=== PATIENT | male | born 1985 | race Caucasian/White ===

== ENCOUNTER → 2021-11-28 | Outpatient (CLI) | payer OTHER | LOC: KOH-I 10:41 | DX: M79.672 Pain in left foot (principal) | CPT/HCPCS: 73630 ==

== ENCOUNTER → 2022-01-12 | Day surgery (SDC) | payer OTHER ==
[~2022-01-12] VITALS: Ht 182.9 cm; Wt 88.9 kg
== END | disposition home or self-care (01) ==
LOC: OR 06:42
DX: M84.475A Pathological fracture, left foot, initial encounter for fracture (principal); M87.075 Idiopathic aseptic necrosis of left foot; M24.275 Disorder of ligament, left foot; G89.29 Other chronic pain; Z86.16 Personal history of COVID-19
CPT/HCPCS: 73630; 76000; J0690; J1100; J1885; J2001; J2250; J2405; J2704; J2795; J3010; J3370; J7120

== ENCOUNTER → 2022-02-20 | Outpatient (CLI) | payer OTHER | LOC: KOH-I 11:30 | DX: I82.402 Acute embolism and thrombosis of unspecified deep veins of left lower extremity (principal) | CPT/HCPCS: 93971 ==